=== PATIENT | female | born 1990 | race Caucasian/White ===

== ENCOUNTER → 2021-04-14 | Outpatient (CLI) | payer OTHER ==
--- NOTE | 2021-04-14 12:32 | KCIC ---
EXAM: MRI right shoulder DATE: 04/14/2021 10:55 AM COMPARISON: None INDICATION: Reason: RIGHT SHOULDER PAIN / Spl. Instructions: Most recently aggrevated by working out. / History: Chronic right shoulder pain on and off for 8 yrs. TECHNIQUE: Multiplanar, multisequence MRI of the right shoulder was performed without contrast. FINDINGS: AC joint is congruent with trace lateral downsloping of the distal acromion. No os acromiale. Type I acromion. Trace subacromial subdeltoid bursal edema, bursitis. Mild increased signal within the supraspinatus tendon, tendinosis or strain. Trace intrasubstance flu id signal at the anteriormost supraspinatus tendon, possibly interstitial tear. Otherwise, no discret e rotator cuff tear is identified. Rotator cuff muscle bulk is normal without fatty atrophy. Trace ed jass within the supraspinatus and infraspinatus muscle bellies. The intra-articular and extra articular long head biceps tendon are intact. On survey nondistended ex amination, grossly normal glenoid labrum. No discrete labral tear. No acute fracture or osteonecrosis. Articular cartilage is grossly preserved. IMPRESSION: 1. Trace intrasubstance fluid signal at the anteriormost supraspinatus tendon, possibly interstitial tear without extension to the articular or bursal surface. No full-thickness or partial-thickness te ar extending to the articular or bursal surface. 2. Mild supraspinatus and infraspinatus tendinosis or strain. 3. Trace subacromial subdeltoid bursal edema, bursitis. Electronically signed by: Waylon Alegre MD (04/14/2021 12:29 PM) [id number]
== END ==
LOC: KCIC MRI 10:38
PROVIDERS: ATTEND Nurse Practitioner Family
DX: M25.511 Pain in right shoulder (principal)
CPT/HCPCS: 73221